=== PATIENT | male | born 1980 | race Caucasian/White ===

== ENCOUNTER → 2016-08-02 | Outpatient (CLI) | payer OTHER ==
--- NOTE | 2016-08-02 15:30 | DI ---
Indication: ITS.REASON: DX TESTING PROCEDURE: SHOULDER RIGHT 2-3 VIEWS: Encounter: Initial Comparison: None Findings: There is no acute fracture, dislocation or malalignment identified. Joint spaces are normal. Impression: Normal exam .
== END ==
LOC: IMA 14:26
DX: Z02.9 Encounter for administrative examinations, unspecified (principal)